=== PATIENT | male | born 1955 | race Caucasian/White ===

== ENCOUNTER 2022-01-18 10:44 | Inpatient (IN) | payer OTHER, BC ==
[2022-01-18 11:09] VITALS: BMI 23.6
[2022-01-18] MEDS ORDERED: BISMUTH SUBSALICYLATE 524 MG/30 ML PO PRN (11:30)
[2022-01-18] MEDS ORDERED: ONDANSETRON *ODT* 4 MG TABLET SL PRN (11:30)
[2022-01-18] MEDS ORDERED: LOPERAMIDE HCL 2 MG CAPSULE PO PRN (11:30)
[2022-01-18] MEDS ORDERED: ACETAMINOPHEN 325 MG TABLET (FP) PO PRN (11:30)
[2022-01-18] MEDS ORDERED: BENZOCAINE/MENTHOL (CHLORASEPTIC ) LOZENGE MM PRN (11:30)
[2022-01-18] MEDS ORDERED: MAGNESIUM CITRATE 300 ML BOTTLE PO PRN (11:30)
[2022-01-18] MEDS ORDERED: DICYCLOMINE HCL 10 MG CAPSULE PO PRN (11:30)
[2022-01-18] MEDS ORDERED: MAGNESIUM HYDROX 2400MG/30ML ORAL SUSPENSION 30 ML CUP PO PRN (11:30)
[2022-01-18] MEDS ORDERED: MAG HYDROX/AL HYDROX/SIMETH 30 ML UNIT-DOSE CUP PO PRN (11:30)
[2022-01-18] MEDS ORDERED: chlordiazePOXIDE HCL 25 MG CAPSULE PO PRN (11:37)
[2022-01-18] MEDS ORDERED: METOPROLOL TARTRATE 25 MG TABLET (FP) PO ONE (11:37)
[2022-01-18] MEDS ORDERED: chlordiazePOXIDE HCL 25 MG CAPSULE ONE (12:44)
[2022-01-18] MEDS ORDERED: METOPROLOL TARTRATE 25 MG TABLET (FP) ONE (12:45)
[2022-01-18] MEDS ORDERED: amLODIPine BESYLATE 5 MG TABLET (FP) ONE (12:46)
[2022-01-18] MEDS: chlordiazePOXIDE HCL 25 MG CAPSULE PO SCH ×3 (12:50→22:27)
[2022-01-18] MEDS: amLODIPine BESYLATE 10 MG TABLET (FP) PO SCH (12:56)
[2022-01-18] MEDS: THIAMINE HCL 100 MG TABLET (FP) PO SCH (22:27)
[2022-01-18] MEDS: MELATONIN 5 MG TABLETS PO PRN (22:27)
[2022-01-19] MEDS: IBUPROFEN 400 MG TABLET (FP) PO PRN (02:23)
[2022-01-19] MEDS: METHOCARBAMOL 500 MG TABLET PO PRN ×2 (02:23→11:59)
[2022-01-19] MEDS: hydrOXYzine PAMOATE 25 MG CAPSULE (FP) PO PRN ×2 (05:41→18:02)
[2022-01-19] MEDS: chlordiazePOXIDE HCL 25 MG CAPSULE PO SCH ×4 (05:42→22:13)
[2022-01-19] MEDS: amLODIPine BESYLATE 10 MG TABLET (FP) PO SCH (10:12)
[2022-01-19] MEDS: PRENATAL VITAMINS W/ FOLIC ACID TABLET (FP) PO SCH (10:12)
[2022-01-19] MEDS: SERTRALINE HCL 25 MG TABLET (FP) PO SCH (11:59)
[2022-01-19] MEDS: IBUPROFEN 600 MG TABLET (FP) PO PRN ×2 (13:45→22:15)
[2022-01-19] MEDS: ACETAMINOPHEN 325 MG TABLET (FP) PO PRN (18:01)
[2022-01-19] MEDS: THIAMINE HCL 100 MG TABLET (FP) PO SCH (22:13)
[2022-01-19] MEDS: MELATONIN 5 MG TABLETS PO PRN (22:14)
[2022-01-20] MEDS: chlordiazePOXIDE HCL 25 MG CAPSULE PO SCH ×4 (06:41→22:38)
[2022-01-20] MEDS: METHOCARBAMOL 500 MG TABLET PO PRN ×2 (06:57→22:37)
[2022-01-20] MEDS: IBUPROFEN 400 MG TABLET (FP) PO PRN (06:57)
[2022-01-20] MEDS: PRENATAL VITAMINS W/ FOLIC ACID TABLET (FP) PO SCH (10:22)
[2022-01-20] MEDS: amLODIPine BESYLATE 10 MG TABLET (FP) PO SCH (10:22)
[2022-01-20] MEDS: SERTRALINE HCL 25 MG TABLET (FP) PO SCH (10:23)
[2022-01-20] MEDS: ACETAMINOPHEN 325 MG TABLET (FP) PO PRN (10:24)
[2022-01-20] MEDS: NEOMYCIN/POLYMYXN/HC OTIC SUSPENSION 10 ML BOTTLE AU SCH ×3 (15:40→23:01)
[2022-01-20] MEDS: AMOX TR/POT CLAV 875MG/125MG TABLETS (FP) PO SCH (17:53)
[2022-01-20] MEDS: IBUPROFEN 600 MG TABLET (FP) PO PRN (17:56)
[2022-01-20] MEDS: MELATONIN 5 MG TABLETS PO PRN (22:38)
[2022-01-20] MEDS: THIAMINE HCL 100 MG TABLET (FP) PO SCH (22:38)
[2022-01-21] MEDS ORDERED: chlordiazePOXIDE HCL 10 MG CAPSULE PO PRN
[2022-01-21] MEDS: chlordiazePOXIDE HCL 10 MG CAPSULE PO SCH ×4 (05:36→22:57)
[2022-01-21] MEDS: NEOMYCIN/POLYMYXN/HC OTIC SUSPENSION 10 ML BOTTLE AU SCH ×4 (05:38→23:35)
[2022-01-21] MEDS: IBUPROFEN 600 MG TABLET (FP) PO PRN ×2 (05:40→17:43)
[2022-01-21] MEDS: METHOCARBAMOL 500 MG TABLET PO PRN (05:42)
[2022-01-21] MEDS: AMOX TR/POT CLAV 875MG/125MG TABLETS (FP) PO SCH ×2 (07:57→17:42)
[2022-01-21] MEDS: PRENATAL VITAMINS W/ FOLIC ACID TABLET (FP) PO SCH (10:01)
[2022-01-21] MEDS: SERTRALINE HCL 25 MG TABLET (FP) PO SCH (10:01)
[2022-01-21] MEDS: amLODIPine BESYLATE 10 MG TABLET (FP) PO SCH (10:01)
[2022-01-21] MEDS: ACETAMINOPHEN 325 MG TABLET (FP) PO PRN (10:03)
[2022-01-21] MEDS ORDERED: guaiFENesin 200 MG/10 ML 10 ML UNIT-DOSE CUPS PO PRN (11:20)
[2022-01-21] MEDS: THIAMINE HCL 100 MG TABLET (FP) PO SCH (22:55)
[2022-01-21] MEDS: MELATONIN 5 MG TABLETS PO PRN (22:55)
[2022-01-21] MEDS ORDERED: SODIUM CHLORIDE NASAL SPRAY 44 ML BOTTLE NS PRN (23:50)
[2022-01-22] MEDS: chlordiazePOXIDE HCL 10 MG CAPSULE PO SCH ×2 (06:59→18:21)
[2022-01-22] MEDS: AMOX TR/POT CLAV 875MG/125MG TABLETS (FP) PO SCH ×2 (06:59→18:20)
[2022-01-22] MEDS: NEOMYCIN/POLYMYXN/HC OTIC SUSPENSION 10 ML BOTTLE AU SCH ×3 (07:01→18:36)
[2022-01-22] MEDS: IBUPROFEN 600 MG TABLET (FP) PO PRN (08:46)
[2022-01-22] MEDS: amLODIPine BESYLATE 10 MG TABLET (FP) PO SCH (10:33)
[2022-01-22] MEDS: METHOCARBAMOL 500 MG TABLET PO PRN (10:33)
[2022-01-22] MEDS: PRENATAL VITAMINS W/ FOLIC ACID TABLET (FP) PO SCH (10:33)
[2022-01-22] MEDS: SERTRALINE HCL 25 MG TABLET (FP) PO SCH (10:34)
[2022-01-22] MEDS: THIAMINE HCL 100 MG TABLET (FP) PO SCH (22:52)
[2022-01-22] MEDS: MELATONIN 5 MG TABLETS PO PRN (22:52)
[2022-01-23] MEDS ORDERED: chlordiazePOXIDE HCL 10 MG CAPSULE PO ONE (05:00)
[2022-01-23] MEDS: NEOMYCIN/POLYMYXN/HC OTIC SUSPENSION 10 ML BOTTLE AU SCH ×3 (06:58→13:10)
[2022-01-23] MEDS: AMOX TR/POT CLAV 875MG/125MG TABLETS (FP) PO SCH (06:59)
[2022-01-23] MEDS: amLODIPine BESYLATE 10 MG TABLET (FP) PO SCH (09:10)
[2022-01-23] MEDS: PRENATAL VITAMINS W/ FOLIC ACID TABLET (FP) PO SCH (09:10)
[2022-01-23] MEDS: SERTRALINE HCL 25 MG TABLET (FP) PO SCH (09:10)
[2022-01-23 13:06] VITALS: BP 139/90; PULSE 99; TEMP 97.7
== END 2022-01-23 16:07 | disposition home or self-care (01) | DRG 896 ==
LOC: YASAS 10:44 → UNDOADMIN 12:35 → Y6N 12:35 → Y3N 15:00
PROVIDERS: ADMIT Allergy & Immunology; ATTEND Surgery
PROC: HZ2ZZZZ Detoxification Services for Substance Abuse Treatment (ICD-10-PCS; principal; 2022-01-18)
DX: F10.230 Alcohol dependence with withdrawal, uncomplicated (principal); U07.1 COVID-19; F19.282 Other psychoactive substance dependence with psychoactive substance-induced sleep disorder; F13.230 Sedative, hypnotic or anxiolytic dependence with withdrawal, uncomplicated; F12.20 Cannabis dependence, uncomplicated; F19.24 Other psychoactive substance dependence with psychoactive substance-induced mood disorder; F41.9 Anxiety disorder, unspecified; J20.9 Acute bronchitis, unspecified; H60.8X3 Other otitis externa, bilateral; R00.0 Tachycardia, unspecified; Z87.891 Personal history of nicotine dependence
CPT/HCPCS: 36415; 71045-TC-FY; 71275-TC; 74174-TC; 80053; 80061; 80307; 83605; 83690; 83735; 84100; 84484; 85025; 85610; 85730; 86780; 86850; 86900; 86901; 93005; 93010; 93306-TC; C9803-CS; G0378; Q9967; U0003; U0005